=== PATIENT | male | born 1970 | race Caucasian/White ===

== ENCOUNTER 2016-10-14 18:58 | Emergency (ER) | payer OTHER ==
--- NOTE | 2016-10-14 19:42 | ED NURSING NOTES ---
Clinical Report - Nurses [facility] [address] [place] [address] 10/14/2016 18:58 Patient: LEOBARDO FERRER TRIAGE Triage time 1914. Acuity: LEVEL 3. Chief Complaint: FEVER and CHILLS and FATIGUE (night sweats). --19:17 Jakob Jeffery R.N. 19:13 10/14/16. BP: 113/70. HR: 80. RR: 18. O2 saturation: 96%. Temp: 98.7 F. Pain level now 03/28. --19:17 Jakob Jeffery R.N. Weight: 77.1 kg stated. Height/Length: 69 inches Per Patient. BMI: 25.1. --19:16 Jakob Jeffery R.N. Medications None. --19:15 Jakob Jeffery R.N. Allergies No Known Drug Allergy. --19:15 Jakob Jeffery R.N. History Arrived by private vehicle. Historian: patient. Accompanied by spouse. Onset. (about 4 days). He has had a headache. Treatment SPACE OPERATIONS: (nyquil). SOCIAL HX: Smoker- current status unknown (vape). FALL RISK ASSESSMENT: Fall risk assessment completed. No fall risk identified. NUTRITIONAL RISK ASSESSMENT: The nutritional risk assessment revealed no deficiencies. FUNCTIONAL ASSESSMENT: Functional assessment: no impairments noted. LEARNING NEEDS ASSESSMENT: The learning needs assessment revealed no barriers. SKIN INTEGRITY ASSESSMENT: Skin integrity risk assessment completed. No skin integrity risk identified. --19:17 Jakob Jeffery R.N. ADDITIONAL SURGERIES: Knee Surgery [2011]. --19:15 Jakob Jeffery R.N. Interventions ID band on patient. --19:17 Jakob Jeffery R.N. PHYSICAL ASSESSMENT Ambulatory to room. GENERAL / NEURO / PSYCH: Alert. Oriented X 4. Appears in no acute distress. HEENT: Pupils equal, round and reactive to light. Mucous membranes are pink. RESPIRATORY: Respirations not labored. Chest nontender. CVS: Capillary refill less than 2 seconds. Pulses within normal limits. GI / : Abdomen soft and nontender. SKIN: Skin intact. Skin is warm and dry. Normal skin turgor. --19:17 Jakob Jeffery R.N. NURSING PROGRESS NOTES Patient gowned. Head of bed elevated. Reassurance given. Patient identifiers checked. Call light placed in reach. Bed placed in lowest position. Brakes of bed on. --19:18 Jakob Jeffery R.N. DISPOSITION / DISCHARGE Departure time: 1999. Condition at departure: improved. No learning barriers present. Discharge instructions provided and reviewed with the patient and spouse. Reviewed warnings. Reviewed medication(s). Treatments reviewed. Patient and spouse verbalized understanding. Written instructions provided in Welsh. The patient was discharged by the physician. He was discharged home and accompanied by spouse. He left the Emergency Department ambulatory and via private vehicle. Spouse driving. FALL RISK ASSESSMENT: Fall risk assessment completed. No fall risk identified. --20:01 Jakob Jeffery R.N. 20:00 10/14/16. BP: 111/70. HR: 78. RR: 16. O2 saturation: 96%. Temp: 98.6 F. Pain level now 3/10. --20:01 Jakob Jeffery R.N. Locked/Released at 10/14/2016 20:01 by Jakob Jeffery R.N.
--- NOTE | 2016-10-14 19:42 | ED NURSING NOTES ---
Clinical Report - Nurses [facility] [address] [place] [address] 10/14/2016 18:58 Patient: LEOBARDO FERRER TRIAGE Triage time 1914. Acuity: LEVEL 3. Chief Complaint: FEVER and CHILLS and FATIGUE (night sweats). --19:17 Jakob Jeffery R.N. 19:13 10/14/16. BP: 113/70. HR: 80. RR: 18. O2 saturation: 96%. Temp: 98.7 F. Pain level now 03/28. --19:17 Jakob Jeffery R.N. Weight: 77.1 kg stated. Height/Length: 69 inches Per Patient. BMI: 25.1. --19:16 Jakob Jeffery R.N. Medications None. --19:15 Jakob Jeffery R.N. Allergies No Known Drug Allergy. --19:15 Jakob Jeffery R.N. History Arrived by private vehicle. Historian: patient. Accompanied by spouse. Onset. (about 4 days). He has had a headache. 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 SOCIAL HX: Smoker- current status unknown (vape). FALL RISK ASSESSMENT: Fall risk assessment completed. No fall risk identified. NUTRITIONAL RISK ASSESSMENT: The nutritional risk assessment revealed no deficiencies. FUNCTIONAL ASSESSMENT: Functional assessment: no impairments noted. LEARNING NEEDS ASSESSMENT: The learning needs assessment revealed no barriers. SKIN INTEGRITY ASSESSMENT: Skin integrity risk assessment completed. No skin integrity risk identified. --19:17 Jakob Jeffery R.N. ADDITIONAL SURGERIES: Knee Surgery [2011]. --19:15 Jakob Jeffery R.N. Interventions ID band on patient. --19:17 Jakob Jeffery R.N. PHYSICAL ASSESSMENT Ambulatory to room. GENERAL / NEURO / PSYCH: Alert. Oriented X 4. Appears in no acute distress. HEENT: Pupils equal, round and reactive to light. Mucous membranes are pink. RESPIRATORY: Respirations not labored. Chest nontender. CVS: Capillary refill less than 2 seconds. Pulses within normal limits. GI / : Abdomen soft and nontender. SKIN: Skin intact. Skin is warm and dry. Normal skin turgor. --19:17 Jakob Jeffery R.N. NURSING PROGRESS NOTES Patient gowned. Head of bed elevated. Reassurance given. Patient identifiers checked. Call light placed in reach. Bed placed in lowest position. Brakes of bed on. --19:18 Jakob Jeffery R.N. DISPOSITION / DISCHARGE Departure time: 1999. Condition at departure: improved. No learning barriers present. Discharge instructions provided and reviewed with the patient and spouse. Reviewed warnings. Reviewed medication(s). Treatments reviewed. Patient and spouse verbalized understanding. Written instructions provided in Bermudian. The patient was discharged by the physician. He was discharged home and accompanied by spouse. He left the Emergency Department ambulatory and via private vehicle. Spouse driving. FALL RISK ASSESSMENT: Fall risk assessment completed. No fall risk identified. --20:01 Jakob Jeffery R.N. 20:00 10/14/16. BP: 111/70. HR: 78. RR: 16. O2 saturation: 96%. Temp: 98.6 F. Pain level now 3/10. --20:01 Jakob Jeffery R.N. Locked/Released at 10/14/2016 20:01 by Jakob Jeffery R.N.
--- NOTE | 2016-10-14 19:42 | ED ORDER SUMMARY ---
..... Patient: LEOBARDO FERRER OrderSheet [facility] VisitID: [id number] [address] [place] [address] 46y, M Registration Date/Time: 10/14/2016 ORDER SHEET Weight: 77.1 kg (stated) Allergies: No Known Drug Allergy GENERAL ORDERS: Chest 2V Urgent (19:21 10/14/2016 Andrés Kowalski) (19:36 [facility]) MEDICATION ORDERS: IV FLUIDS: ORDER SHEET NOTES: [Electronically signed by Jakob Jeffery R.N. (20:01 10/14/2016)] [Electronically signed by Nellie Galdamez P.A.-C (20:16 10/14/2016)] [Electronically locked/signed by Jakob Jeffery R.N. (20:10/14/2016)]
--- NOTE | 2016-10-14 19:42 | ED ORDER SUMMARY ---
..... Patient: LEOBARDO FERRER OrderSheet [facility] VisitID: [id number] [address] [place] [address] 46y, M Registration Date/Time: 10/14/2016 ORDER SHEET Weight: 77.1 kg (stated) Allergies: No Known Drug Allergy GENERAL ORDERS: Chest 2V Urgent (19:21 10/14/2016 Andrés Kowalski) (19:36 [facility]) MEDICATION ORDERS: IV FLUIDS: ORDER SHEET NOTES: [Electronically signed by Jakob Jeffery R.N. (20:01 10/14/2016)] [Electronically signed by Nellie Galdamez P.A.-C (20:16 10/14/2016)] [Electronically locked/signed by Jakob Jeffery R.N. (20:10/14/2016)]
--- NOTE | 2016-10-14 19:42 | ED CLINICAL REPORT ---
Clinical Report - Physicians/Mid Levels [facility] [address] [place] [address] 10/14/2016 18:58 Patient: LEOBARDO FERRER Time Seen: 19:17 Oct 14 2016. Arrived- By private vehicle. Historian- patient. HISTORY OF PRESENT ILLNESS Chief Complaint: "FLU". This started 4 days and is still present. The illness is described as mild. The patient has had sputum production and a cough. Additional history - The patient has had contact with a sick individual. (Fevers cough over the last 4 days, recent sick contacts at work. Possible pneumonia. Reports no myalgias or arthralgias, however this had weakness.). REVIEW OF SYSTEMS No diarrhea. All systems otherwise negative, except as recorded above. PAST HISTORY Problems: Eye Pain. Additional Surgeries: Knee Surgery [2010]. Medications: None. Allergies: No Known Drug Allergy. SOCIAL HISTORY Smoker- current status unknown (vape). PHYSICAL EXAM Appearance: Alert. No acute distress. ENT: Pharynx normal. Uvula midline. CVS: Normal heart rate and rhythm. Heart sounds normal. Respiratory: No respiratory distress. Breath sounds normal. No retractions, splinting, rhonchi or wheezes. Abdomen: Soft. Neuro: Oriented X 3. LABS, X-RAYS, AND EKG Chest X-ray: Mediastinum normal. No fracture. (probably early signs of right infiltrate). PROGRESS AND PROCEDURES Course of Care: pt in the er is stable, early signs/ fevers/ cough of pneumonia/ vs bronchitis. Pt with good o2 sat, and no clear rhonchi, given vape, and exposure history will tx. NO hemoptysis. No signs of sepsis, normacardic. To f/u outpatient. 10/14/2016 20:00 BP: 111/70. HR: 78. RR: 16. O2 saturation: 96%. Temp: 98.6 F. Patient is stable. Symptoms better. Patient/family counseled. Differential Diagnosis: I considered viral bronchitis, laryngotracheobronchitis, viral pneumonia, bacterial bronchitis, bacterial tracheobronchitis, bacterial pneumonia, mycoplasmal bronchitis, mycoplasmal pneumonia, chlamydial bronchitis, bronchospasm, allergic bronchospasm, irritant bronchospasm, lung cancer and adverse drug reaction as a possible cause of cough in this patient. This is a partial list of diagnoses considered. Disposition: Discharged. Condition: good. CLINICAL IMPRESSION Acute bronchitis. INSTRUCTIONS Drink plenty of fluids. Prescription Medications: Robitussin A-C cough syrup take five (5) mL orally every 4 hours as needed for cough for 3 days. Dispense sixty (60) mL. No refill. Substitution is permissible. Zithromax 250 mg tablets: take 2 orally today, followed by 1 daily for the next 4 days. No refills. Substitution is permissible. OTC Medications: Motrin IB 200 mg (available over the counter): take 2 orally every 6 hours for 5 days, as needed for pain Follow-up: Follow up with your doctor in three days. (Electronically signed by Nellie Galdamez P.A.-C 10/14/2016 20:16)
--- NOTE | 2016-10-14 19:42 | ED CLINICAL REPORT ---
Clinical Report - Physicians/Mid Levels [facility] [address] [place] [address] 10/14/2016 18:58 Patient: LEOBARDO FERRER Time Seen: 19:17 Oct 14 2016. Arrived- By private vehicle. Historian- patient. HISTORY OF PRESENT ILLNESS Chief Complaint: "FLU". This started 4 days and is still present. The illness is described as mild. The patient has had sputum production and a cough. Additional history - The patient has had contact with a sick individual. (Fevers cough over the last 4 days, recent sick contacts at work. Possible pneumonia. Reports no myalgias or arthralgias, however this had weakness.). REVIEW OF SYSTEMS No diarrhea. All systems otherwise negative, except as recorded above. PAST HISTORY Problems: Eye Pain. Additional Surgeries: Knee Surgery [2010]. Medications: None. Allergies: No Known Drug Allergy. SOCIAL HISTORY Smoker- current status unknown (vape). PHYSICAL EXAM Appearance: Alert. No acute distress. ENT: Pharynx normal. Uvula midline. CVS: Normal heart rate and rhythm. Heart sounds normal. Respiratory: No respiratory distress. Breath sounds normal. No retractions, splinting, rhonchi or wheezes. Abdomen: Soft. Neuro: Oriented X 3. LABS, X-RAYS, AND EKG Chest X-ray: Mediastinum normal. No fracture. (probably early signs of right infiltrate). PROGRESS AND PROCEDURES Course of Care: pt in the er is stable, early signs/ fevers/ cough of pneumonia/ vs bronchitis. Pt with good o2 sat, and no clear rhonchi, given vape, and exposure history will tx. NO hemoptysis. No signs of sepsis, normacardic. To f/u outpatient. 10/14/2016 20:00 BP: 111/70. HR: 78. RR: 16. O2 saturation: 96%. Temp: 98.6 F. Patient is stable. Symptoms better. Patient/family counseled. Differential Diagnosis: I considered viral bronchitis, laryngotracheobronchitis, viral pneumonia, bacterial bronchitis, bacterial tracheobronchitis, bacterial pneumonia, mycoplasmal bronchitis, mycoplasmal pneumonia, chlamydial bronchitis, bronchospasm, allergic bronchospasm, irritant bronchospasm, lung cancer and adverse drug reaction as a possible cause of cough in this patient. This is a partial list of diagnoses considered. Disposition: Discharged. Condition: good. CLINICAL IMPRESSION Acute bronchitis. INSTRUCTIONS Drink plenty of fluids. Prescription Medications: Robitussin A-C cough syrup take five (5) mL orally every 4 hours as needed for cough for 3 days. Dispense sixty (60) mL. No refill. Substitution is permissible. Zithromax 250 mg tablets: take 2 orally today, followed by 1 daily for the next 4 days. No refills. Substitution is permissible. OTC Medications: Motrin IB 200 mg (available over the counter): take 2 orally every 6 hours for 5 days, as needed for pain Follow-up: Follow up with your doctor in three days. (Electronically signed by Nellie Galdamez P.A.-C 10/14/2016 20:16)
--- NOTE | 2016-10-14 20:16 | ED MAR SUMMARY ---
..... Medication Administration Record [facility] [address] [place], [place] [id number] Patient: LEOBARDO FERRER Visit ID: [id number] 46y, M Weight: 77.1 kg Height/Length: 69 in BMI: 25.1 ALLERGIES: No Known Drug Allergy
--- NOTE | 2016-10-14 20:16 | ED MAR SUMMARY ---
..... Medication Administration Record [facility] [address] [place], [place] [id number] Patient: LEOBARDO FERRER Visit ID: [id number] 46y, M Weight: 77.1 kg Height/Length: 69 in BMI: 25.1 ALLERGIES: No Known Drug Allergy
--- NOTE | 2016-10-14 20:16 | ED MED RECONCILIATION SUMMARY ---
Patient: LEOBARDO FERRER Medication Reconciliation Report [facility] VisitID: [id number] [place] [address] 46y, M Registration Date/Time: 10/14/2016 Weight: 77.1 kg Height/Length: 69 in. BMI: 25.1 ALLERGIES: No Known Drug Allergy The patient's Home Medications are listed below: NONE. The source(s) of the original Home Medication information: Not obtained. The following Medications were given to the patient in the Emergency Department: None. The following Medications were prescribed to the patient: Motrin IB 200 mg (available over the counter): take 2 orally every 6 hours for 5 days, as needed for pain -- Nellie Galdamez P.AEve Robitussin A-C cough syrup take five (5) mL orally every 4 hours as needed for cough for 3 days. Dispense sixty (60) mL. No refill. Substitution is permissible. -- Nellie Galdamez P.AEve Zithromax 250 mg tablets: take 2 orally today, followed by 1 daily for the next 4 days. No refills. Substitution is permissible. -- Nellie Galdamez P.AEve
--- NOTE | 2016-10-14 20:16 | ED MED RECONCILIATION SUMMARY ---
Patient: LEOBARDO FERRER Medication Reconciliation Report [facility] VisitID: [id number] [place] [address] 46y, M Registration Date/Time: 10/14/2016 Weight: 77.1 kg Height/Length: 69 in. BMI: 25.1 ALLERGIES: No Known Drug Allergy The patient's Home Medications are listed below: NONE. The source(s) of the original Home Medication information: Not obtained. The following Medications were given to the patient in the Emergency Department: None. The following Medications were prescribed to the patient: Motrin IB 200 mg (available over the counter): take 2 orally every 6 hours for 5 days, as needed for pain -- Nellie Galdamez P.AEve Robitussin A-C cough syrup take five (5) mL orally every 4 hours as needed for cough for 3 days. Dispense sixty (60) mL. No refill. Substitution is permissible. -- Nellie Galdamez P.AEve Zithromax 250 mg tablets: take 2 orally today, followed by 1 daily for the next 4 days. No refills. Substitution is permissible. -- Nellie Galdamez P.AEve
--- NOTE | 2016-10-14 20:16 | ED DISCHARGE INSTRUCTIONS ---
Patient: LEOBARDO FERRER General Instructions [facility] VisitID: [id number] [place] [address] 46y, M Registration Date/Time: 10/14/2016 Acute bronchitis. INSTRUCTIONS Drink plenty of fluids. Prescription Medications: Robitussin A-C cough syrup take five (5) mL orally every 4 hours as needed for cough for 3 days. Dispense sixty (60) mL. No refill. Substitution is permissible. Zithromax 250 mg tablets: take 2 orally today, followed by 1 daily for the next 4 days. No refills. Substitution is permissible. OTC Medications: Motrin IB 200 mg (available over the counter): take 2 orally every 6 hours for 5 days, as needed for pain Follow-up: Follow up with your doctor in three days. ADDITIONAL INFORMATION Bronchitis (Adult: Abx Tx) BRONCHITIS is an infection of the air passages (bronchial tubes). It often occurs during the common cold. Symptoms include cough with mucus (phlegm) and low-grade fever. Bronchitis usually lasts 7-14 days. Mild cases can be treated with simple home remedies. More severe infection is treated with an antibiotic. Home Care: If symptoms are severe, rest at home for the first 2-3 days. When you resume activity, don't let yourself get too tired. Do not smoke. Avoid being exposed to the smoke of others. You may use acetaminophen (Tylenol) or ibuprofen (Motrin, Advil) to control fever or pain, unless another medicine was prescribed for this. [NOTE: If you have chronic liver or kidney disease or ever had a stomach ulcer or GI bleeding, talk with your doctor before using these medicines.] Your appetite may be poor, so a light diet is fine. Avoid dehydration by drinking 6-8 glasses of fluids per day (water, soft, drinks, juices, tea, soup, etc.). Extra fluids will help loosen secretions in the lungs. Xwfg-qhv-huplyji cough medicines that containdextromethorphan(such as Robitussin DM) and decongestants (Actifed or Sudafed) may help relieve cough and congestion. [NOTE: Do not use decongestants if you have high blood pressure.] Finish all antibiotic medicine, even if you are feeling better after only a few days. Follow Up with your doctor or as directed if you dont start to feel better after three days. [NOTE: If you are age 65 or older, or if you have chronic asthma or COPD, we recommend a PNEUMOCOCCAL VACCINATION every five years and a yearly INFLUENZAVACCINATION (FLU-SHOT) every . Ask your doctor about this. If you had an X-ray, a radiologist will review it. You will be notified of any new findings that may affect your care.] Get Prompt Medical Attention if any of the following occur: Fever over 100.4F (38.0C) for more than three days Trouble breathing, wheezing or pain with breathing Coughing up blood or increased amounts of colored sputum Weakness, drowsiness, headache, facial pain, ear pain or a stiff neck Ibuprofen Oral tablet What is this medicine? IBUPROFEN (eye BYOO proe fen) is a non-steroidal anti-inflammatory drug (NSAID). It is used for dental pain, fever, headaches or migraines, osteoarthritis, rheumatoid arthritis, or painful monthly periods. It can also relieve minor aches and pains caused by a cold, flu, or sore throat. How should I use this medicine? Take this medicine by mouth with a glass of water. Follow the directions on the prescription label. Take this medicine with food if your stomach gets upset. Try to not lie down for at least 10 minutes after you take the medicine. Take your medicine at regular intervals. Do not take your medicine more often than directed. A special MedGuide will be given to you by the pharmacist with each prescription and refill. Be sure to read this information carefully each time. Talk to your welding foreman regarding the use of this medicine in children. Special care may be needed. What side effects may I notice from receiving this medicine? Side effects that you should report to your doctor or health laboratory animal caretaker as soon as possible: allergic reactions like skin rash, itching or hives, swelling of the face, lips, or tongue black or bloody stools, blood in the urine or in vomit breathing problems changes in vision chest pain general ill feeling or flu-like symptoms nausea or vomiting redness, blistering, peeling or loosening of the skin, including inside the mouth slurred speech or weakness on one side of the body stomach pain unexplained weight gain or swelling unusually weak or tired yellowing of eyes or skin Side effects that usually do not require medical attention (report to your doctor or health laboratory animal caretaker if they continue or are bothersome): constipation or diarrhea dizziness gas or heartburn stomach upset What may interact with this medicine? Do not take this medicine with any of the following medications: cidofovir ketorolac methotrexate pemetrexed This medicine may also interact with the following medications: alcohol aspirin diuretics lithium other drugs for inflammation like prednisone warfarin What if I miss a dose? If you miss a dose, take it as soon as you can. If it is almost time for your next dose, take only that dose. Do not take double or extra doses. Where should I keep my medicine? Keep out of the reach of children. Store at room temperature between 15 and 30 degrees C (59 and 86 degrees F). Keep container tightly closed. Throw away any unused medicine after the expiration date. What should I tell my health care provider before I take this medicine? They need to know if you have any of these conditions: asthma cigarette smoker drink more than 3 alcohol containing drinks a day heart disease or circulation problems such as heart failure or leg edema (fluid retention) high blood pressure kidney disease liver disease stomach bleeding or ulcers an unusual or allergic reaction to ibuprofen, aspirin, other NSAIDS, other medicines, foods, dyes, or preservatives or trying to get breast-feeding What should I watch for while using this medicine? Tell your doctor or healthcare professional if your symptoms do not start to get better or if they get worse. This medicine does not prevent heart attack or stroke. In fact, this medicine may increase the chance of a heart attack or stroke. The chance may increase with longer use of this medicine and in people who have heart disease. If you take aspirin to prevent heart attack or stroke, talk with your doctor or health laboratory animal caretaker. Do not take other medicines that contain aspirin, ibuprofen, or naproxen with this medicine. Side effects such as stomach upset, nausea, or ulcers may be more likely to occur. Many medicines available without a prescription should not be taken with this medicine. This medicine can cause ulcers and bleeding in the stomach and intestines at any time during treatment. Ulcers and bleeding can happen without warning symptoms and can cause . To reduce your risk, do not smoke cigarettes or drink alcohol while you are taking this medicine. You may get drowsy or dizzy. Do not drive, use machinery, or do anything that needs mental alertness until you know how this medicine affects you. Do not stand or sit up quickly, especially if you are an older patient. This reduces the risk of dizzy or fainting spells. This medicine can cause you to bleed more easily. Try to avoid damage to your teeth and gums when you brush or floss your teeth. You have been given the following additional information: Bronchitis, Antiobiotic Treatment (Adult) Ibuprofen Oral tablet (Electronically signed by Nellie Galdamez P.A.-C 10/14/2016 20:16)
--- NOTE | 2016-10-14 21:25 | DIAGNOSTIC IMAGING REPORT ---
PROCEDURE: XR CHEST 2 VIEW INDICATION: FEVER TECHNIQUE: PA and lateral views. COMPARISON: None. FINDINGS: There mild increased parenchymal changes in the right upper lobe anterior segment) with mild right hilar adenopathy. Left lung is clear. Heart and mediastinum are normal. Thorax is normal. IMPRESSION: 1. Increased parenchymal changes in the right upper lobe with right hilar adenopathy. Findings are most compatible with pneumonia (e.g., bacterial, Mycoplasma). Atypical pneumonitis (e.g., fungal, primary tuberculosis) are less likely, although could have this appearance. 2. Findings discussed with LAURENCE Corral.
== END 2016-10-14 20:00 | disposition home or self-care (01) ==
LOC: ED SRH 18:58
DX: J20.9 Acute bronchitis, unspecified (principal)

== ENCOUNTER 2016-11-08 18:02 | Emergency (ER) | payer OTHER ==
--- NOTE | 2016-11-08 19:48 | DIAGNOSTIC IMAGING REPORT ---
PROCEDURE: CT ABDOMEN/PELVIS W/O CONTRAST INDICATION: RIGHT FLANK PAIN, HX STONES, HEMATURIA TECHNIQUE: Axial CT images were obtained through the abdomen and pelvis without IV contrast. Coronal and sagittal reformations were created. COMPARISON: None. FINDINGS: Mild right hydronephrosis and hydroureter. At the right ureterovesicular junction, there is a 3 mm calculus. No discrete intrarenal calculi of either side. Clear lung bases. Normal size heart. No hiatal hernia. The unenhanced appearance of the liver, gallbladder, adrenal glands, pancreas and spleen is normal. The abdominal aorta is normal in its course and caliber without atherosclerosis. There are no suspicious calcifications, retroperitoneal adenopathy or masses. The stomach, upper bowel loops, and mesentery appears normal. Intact anterior abdominal wall. No free fluid, or inflammation. The unenhanced appearance of the prostate gland, seminal vesicles, decompressed urinary bladder, pelvic vessels, and pelvic bowel loops is normal. Normal appendix. No suspicious free fluid, or mass. Severe disc endplate degeneration L4-5 and L5-S1. Mild degenerative changes in the right hip joint. IMPRESSION: 1. 3 mm right ureter vesicular junction calculus causing mild hydroureteronephrosis. 2. Findings called to the emergency room. All CT scans at this facility use dose modulation, iterative reconstruction, and/or weight-based dosing when appropriate to reduce radiation dose to as low as reasonably achievable.
--- NOTE | 2016-11-08 20:43 | ED ORDER SUMMARY ---
..... Patient: LEOBARDO FERRER OrderSheet [facility] VisitID: [id number] [address] [place] [address] 46y, M Registration Date/Time: 11/08/2016 ORDER SHEET Weight: 79.3 kg (stated) Allergies: No Known Drug Allergy GENERAL ORDERS: UA-Culture if indicated Urgent (18:31 11/08/2016 DDean R.N. per protocol) (Ack 18:37 LNations ER Tech1) (18:41 DDean R.N.) CBC w Diff Urgent (18:41 11/08/2016 Rey Shane) (Ack 18:43 LNations ER Tech1) (19:26 DDean R.N.) CMP Urgent (18:41 11/08/2016 Rey Shane) (Ack 18:43 LNations ER Tech1) (19:26 DDean R.N.) Lipase Urgent (18:41 11/08/2016 Rey Shane) (Ack 18:43 LNations ER Tech1) (19:26 DDean R.N.) CT Abd/Pel wo Cont Urgent (18:51 11/08/2016 Rey Shane) (Ack 18:53 LNations ER Tech1) (19:03 DDean R.N.) MEDICATION ORDERS: IV FLUIDS: IV NS : initial bolus 1000 mL (1000 mL/hr), then none - for X1 (NOW) (18:41 11/08/2016 Rey Shane) (Ack 18:54 DDean R.N.) (19:29 DDean R.N.) Toradol IV 30 mg (NOW) (18:52 11/08/2016 Rey Shane) (Ack 18:56 DDean R.N.) (19:27 DDean R.N.) Morphine IV 4 mg (HIGH ALERT MEDICATION, NOW) (18:52 11/08/2016 Rey Shane) (Ack 18:56 DDean R.N.) (19:28 DDean R.N.) ORDER SHEET NOTES: [Electronically signed by Bert Rosales R.N. (02:35 11/09/2016)] [Electronically signed by Marvel Dejesus Dr. (03:46 11/16/2016)] [Electronically locked/signed by Bert Rosales R.N. (02:35 11/09/2016)]
--- NOTE | 2016-11-08 20:43 | ED NURSING NOTES ---
Clinical Report - Nurses [facility] [place] [address] 11/08/2016 18:02 Patient: LEOBARDO FERRER TRIAGE Triage time 18:18. Acuity: LEVEL 3. Chief Complaint: BACK PAIN and (frequency, urgency, dysuria, pain in testicles). Alert. ABRAHAN COMA SCORE: [place] Coma Scale: 15- eyes open spontaneously (4); best verbal response- oriented x 4 (5); best motor response- obeys commands (6). --18:25 Di Powers R.N. 18:18 11/08/16. BP: 113/85. HR: 65. RR: 18. O2 saturation: 97%. Temp: 98.2 F (oral). Pain level now: 8/10. --18:25 Di Powers R.N. Weight: 79.3 kg stated. Height/Length: 69 inches Per Patient. BMI: 25.8. --18:22 Di Powers R.N. Medications antibiotic for skin. --18:21 Di Powers R.N. Medication/allergy information source: the patient. --18:25 Di Powers R.N. Allergies No Known Drug Allergy. --18:22 Di Powers R.N. History Arrived by private vehicle. Historian: patient. Accompanied by family. Primary physician (Veronica). Onset. (last Tuesday). ( constant). Relates the location as in the right flank area. Notes pain level as 7/10 on arrival. It is described as radiating to the right lower quadrant of the abdomen. SOCIAL HX: Smoker- current status unknown (no). No alcohol use or drug use. FALL RISK ASSESSMENT: Fall risk assessment completed. No fall risk identified. FUNCTIONAL ASSESSMENT: Functional assessment: no impairments noted. LEARNING NEEDS ASSESSMENT: The learning needs assessment revealed no barriers. --18:25 Di Powers R.N. PROBLEMS: UTI - Urinary Tract Infection. Nephrolithiasis. Bronchitis. Eye Pain. --18:22 Di Powers R.N. ADDITIONAL SURGERIES: Knee Surgery [2011]. --18:22 Di Powers R.N. Assessment GENERAL / NEURO / PSYCH: Alert. Oriented X 4. Appears in no acute distress. Patient appears calm and cooperative. RESPIRATORY: Respirations not labored. SKIN: Skin is warm and dry. --18:25 Di Powers R.N. Interventions ID band on patient. To treatment room. --18:25 Di Powers R.N. PHYSICAL ASSESSMENT 18:25. Ambulatory to room. Patient gowned. GENERAL / NEURO / PSYCH: Alert. Oriented X 4. Appears in pain. RESPIRATORY: Respirations not labored. CVS: Capillary refill less than 2 seconds. GI / : Abdomen soft. ( pt states he has pain in urination "feels more like a kidney infection than a kidney stone"). --18:30 Juilanne Junior R.N. NURSING PROGRESS NOTES 18:18 attempting to collect urine. --18:18 Di Powers R.N. 18:18. Patient gowned. Head of bed elevated. Reassurance given. Patient identifiers checked. Call light placed in reach. Side rails up. Bed placed in lowest position. Care transferred and report received (placed in room bytriage nurse). --18:28 Julianne Junior R.N. 18:25. Patient ID band checked for patient name and birthdate: patient confirmed. Clean catch urine collected with return of yellow-colored clear urine; sample sent to lab for urinalysis and culture. Specimen labeled in the presence of the patient. --18:29 Julianne Junior R.N. 19:14 11/08/2016 Started bag #1 1000 mL IV Fluids IV NS (Saline); at 1000 mL/hr over 1 hour(s) via site #1 via IV pump. --19:29 Julianne Junior R.N. 19:15 11/08/2016 Site #1 started via IV in the right forearm with an 20g angiocath, with aseptic technique and good blood return; one attempt. Blood drawn: rainbow set. Labeled in the presence of the patient and sent to the lab. Saline lock flushed with 10 mL saline. --19:27 Julianne Junior R.N. 19:17 11/08/2016 Toradol IVP 30 mg given over 1 minute(s) via site #1. IV patency established. IV site checked: no pain, redness, or swelling. IV flushed thoroughly pre- and post-medication administration. IVP given by RN. --19:27 Julianne Junior R.N. 19:18 11/08/2016 Morphine IVP 4 mg given over 1 minute(s) via site #1. Sedative warning given to the patient. IV patency established. IV site checked: no pain, redness, or swelling. IV flushed thoroughly pre- and post-medication administration. IVP given by RN. --19:28 Julianne Junior R.N. 19:29 11/08/2016 Morphine IVP Response: pain is gone now. Symptoms have improved the patient feels better. ED physician notified. --19:29 Julianne Junior R.N. 20:35 11/08/16. --20:35 Julianne Junior R.N. 20:34 11/08/16. BP: 104/74. HR: 58. RR: 18. O2 saturation: 97%. Temp: deferred. Pain level now: 0/10. --20:35 Julianne Junior R.N. 20:48. The patient is calm and resting quietly. Overall patient status is improved- he states feels better. GENERAL / NEURO / PSYCH: Alert. Oriented X 4. SKIN: Skin is warm and dry. Skin color within normal limits. --20:53 Bert Rosales R.N. DISPOSITION / DISCHARGE 20:45 11/08/2016 Site #1 removed upon discharge. Catheter intact. Bandage applied. --20:53 Bert Rosales R.N. Departure time: 20:51. Condition at departure: stable. No learning barriers present. Discharge instructions provided and reviewed with the patient. Reviewed medication(s) side effects, precautions, dosing and course information. Prescription(s) given to the patient. Patient verbalized understanding. Written instructions provided in Hebrew. The patient was discharged home and accompanied by tax examiner. He left the Emergency Department ambulatory and via private vehicle. R[employer]D Lab Technician driving. FALL RISK ASSESSMENT: Fall risk assessment completed. No fall risk identified. --20:53 Bert Rosales R.N. 20:46 11/08/16. BP: 104/71. HR: 56. RR: 14. O2 saturation: 99%. Pain level now: 0/10. --20:53 Bert Rosales R.N. Locked/Released at 11/09/2016 2:35 by Bert Rosales R.N.
--- NOTE | 2016-11-08 20:43 | ED ORDER SUMMARY ---
..... Patient: LEOBARDO FERRER OrderSheet [facility] VisitID: [id number] [address] [place] [address] 46y, M Registration Date/Time: 11/08/2016 ORDER SHEET Weight: 79.3 kg (stated) Allergies: No Known Drug Allergy GENERAL ORDERS: UA-Culture if indicated Urgent (18:31 11/08/2016 DDean R.N. per protocol) (Ack 18:37 LNations ER Tech1) (18:41 DDean R.N.) CBC w Diff Urgent (18:41 11/08/2016 Rey Shane) (Ack 18:43 LNations ER Tech1) (19:26 DDean R.N.) CMP Urgent (18:41 11/08/2016 Rey Shane) (Ack 18:43 LNations ER Tech1) (19:26 DDean R.N.) Lipase Urgent (18:41 11/08/2016 Rey Shane) (Ack 18:43 LNations ER Tech1) (19:26 DDean R.N.) CT Abd/Pel wo Cont Urgent (18:51 11/08/2016 Rey Shane) (Ack 18:53 LNations ER Tech1) (19:03 DDean R.N.) MEDICATION ORDERS: IV FLUIDS: IV NS : initial bolus 1000 mL (1000 mL/hr), then none - for X1 (NOW) (18:41 11/08/2016 Rey Shane) (Ack 18:54 DDean R.N.) (19:29 DDean R.N.) Toradol IV 30 mg (NOW) (18:52 11/08/2016 Rey Shane) (Ack 18:56 DDean R.N.) (19:27 DDean R.N.) Morphine IV 4 mg (HIGH ALERT MEDICATION, NOW) (18:52 11/08/2016 Rey Shane) (Ack 18:56 DDean R.N.) (19:28 DDean R.N.) ORDER SHEET NOTES: [Electronically signed by Bert Rosales R.N. (02:35 11/09/2016)] [Electronically signed by Marvel Dejesus Dr. (03:46 11/16/2016)] [Electronically locked/signed by Bert Rosales R.N. (02:35 11/09/2016)]
--- NOTE | 2016-11-08 20:43 | ED NURSING NOTES ---
Clinical Report - Nurses [facility] [place] [address] 11/08/2016 18:02 Patient: LEOBARDO FERRER TRIAGE Triage time 18:18. Acuity: LEVEL 3. Chief Complaint: BACK PAIN and (frequency, urgency, dysuria, pain in testicles). Alert. ABARHAN COMA SCORE: [place] Coma Scale: 15- eyes open spontaneously (4); best verbal response- oriented x 4 (5); best motor response- obeys commands (6). --18:25 Di Powers R.N. 18:18 11/08/16. BP: 113/85. HR: 65. RR: 18. O2 saturation: 97%. Temp: 98.2 F (oral). Pain level now: 8/10. --18:25 Di Powers R.N. Weight: 79.3 kg stated. Height/Length: 69 inches Per Patient. BMI: 25.8. --18:22 Di Powers R.N. Medications antibiotic for skin. --18:21 Di Powers R.N. Medication/allergy information source: the patient. --18:25 Di Powers R.N. Allergies No Known Drug Allergy. --18:22 Di Powers R.N. History Arrived by private vehicle. Historian: patient. Accompanied by family. Primary physician (Veronica). Onset. (last Tuesday). ( constant). Relates the location as in the right flank area. Notes pain level as 7/10 on arrival. It is described as radiating to the right lower quadrant of the abdomen. SOCIAL HX: Smoker- current status unknown (no). No alcohol use or drug use. FALL RISK ASSESSMENT: Fall risk assessment completed. No fall risk identified. FUNCTIONAL ASSESSMENT: Functional assessment: no impairments noted. LEARNING NEEDS ASSESSMENT: The learning needs assessment revealed no barriers. --18:25 Di Powers R.N. PROBLEMS: UTI - Urinary Tract Infection. Nephrolithiasis. Bronchitis. Eye Pain. --18:22 Di Powers R.N. ADDITIONAL SURGERIES: Knee Surgery [2011]. --18:22 Di Powers R.N. Assessment GENERAL / NEURO / PSYCH: Alert. Oriented X 4. Appears in no acute distress. Patient appears calm and cooperative. RESPIRATORY: Respirations not labored. SKIN: Skin is warm and dry. --18:25 Di Powers R.N. Interventions ID band on patient. To treatment room. --18:25 Di Powers R.N. PHYSICAL ASSESSMENT 18:25. Ambulatory to room. Patient gowned. GENERAL / NEURO / PSYCH: Alert. Oriented X 4. Appears in pain. RESPIRATORY: Respirations not labored. CVS: Capillary refill less than 2 seconds. GI / : Abdomen soft. ( pt states he has pain in urination "feels more like a kidney infection than a kidney stone"). --18:30 Julianne Junior R.N. NURSING PROGRESS NOTES 18:18 attempting to collect urine. --18:18 Di Powers R.N. 18:18. Patient gowned. Head of bed elevated. Reassurance given. Patient identifiers checked. Call light placed in reach. Side rails up. Bed placed in lowest position. Care transferred and report received (placed in room bytriage nurse). --18:28 Julianne Junior R.N. 18:25. Patient ID band checked for patient name and birthdate: patient confirmed. Clean catch urine collected with return of yellow-colored clear urine; sample sent to lab for urinalysis and culture. Specimen labeled in the presence of the patient. --18:29 Julianne Junior R.N. 19:14 11/08/2016 Started bag #1 1000 mL IV Fluids IV NS (Saline); at 1000 mL/hr over 1 hour(s) via site #1 via IV pump. --19:29 Julianne Junior R.N. 19:15 11/08/2016 Site #1 started via IV in the right forearm with an 20g angiocath, with aseptic technique and good blood return; one attempt. Blood drawn: rainbow set. Labeled in the presence of the patient and sent to the lab. Saline lock flushed with 10 mL saline. --19:27 Julianne Junior R.N. 19:17 11/08/2016 Toradol IVP 30 mg given over 1 minute(s) via site #1. IV patency established. IV site checked: no pain, redness, or swelling. IV flushed thoroughly pre- and post-medication administration. IVP given by RN. --19:27 Julianne Junior R.N. 19:18 11/08/2016 Morphine IVP 4 mg given over 1 minute(s) via site #1. Sedative warning given to the patient. IV patency established. IV site checked: no pain, redness, or swelling. IV flushed thoroughly pre- and post-medication administration. IVP given by RN. --19:28 Julianne Junior R.N. 19:29 11/08/2016 Morphine IVP Response: pain is gone now. Symptoms have improved the patient feels better. ED physician notified. --19:29 Julianne Junior R.N. 20:35 11/08/16. --20:35 Julianne Junior R.N. 20:34 11/08/16. BP: 104/74. HR: 58. RR: 18. O2 saturation: 97%. Temp: deferred. Pain level now: 0/10. --20:35 Julianne Junior R.N. 20:48. The patient is calm and resting quietly. Overall patient status is improved- he states feels better. GENERAL / NEURO / PSYCH: Alert. Oriented X 4. SKIN: Skin is warm and dry. Skin color within normal limits. --20:53 Bert Rosales R.N. DISPOSITION / DISCHARGE 20:45 11/08/2016 Site #1 removed upon discharge. Catheter intact. Bandage applied. --20:53 Bert Rosales R.N. Departure time: 20:51. Condition at departure: stable. No learning barriers present. Discharge instructions provided and reviewed with the patient. Reviewed medication(s) side effects, precautions, dosing and course information. Prescription(s) given to the patient. Patient verbalized understanding. Written instructions provided in [place]ian. The patient was discharged home and accompanied by journeyman press operator. He left the Emergency Department ambulatory and via private vehicle. Operations Mgr driving. FALL RISK ASSESSMENT: Fall risk assessment completed. No fall risk identified. --20:53 Bert Rosales R.N. 20:46 11/08/16. BP: 104/71. HR: 56. RR: 14. O2 saturation: 99%. Pain level now: 0/10. --20:53 Bert Rosales R.N. Locked/Released at 11/09/2016 2:35 by Bert Rosales R.N.
--- NOTE | 2016-11-08 20:43 | ED CLINICAL REPORT ---
Clinical Report - Physicians/Mid Levels [facility] [address] [place] [address] 11/08/2016 18:02 Patient: LEOBARDO FERRER Arrived- By private vehicle. Historian- patient. HISTORY OF PRESENT ILLNESS Chief Complaint: ABDOMINAL PAIN. This started past several days and is still present but is improving. It was abrupt in onset and has been intermittent but is not gone now. At its maximum, severity described as severe. When seen in the E.D., severity described as severe. Modifying factors. Not worsened by anything. Not relieved by anything. It is described as sharp. No radiation. It is described as located in the right lower quadrant. The patient has had nausea and vomiting. No additional abdominal pain. (reports hematuria). Similar symptoms previously: None. Recent medical care: Not recently seen/assessed. REVIEW OF SYSTEMS No fever or chest pain. All systems otherwise negative, except as recorded above. PAST HISTORY See nurses notes. Medications: antibiotic for skin. Allergies: No Known Drug Allergy. SOCIAL HISTORY Never smoker. No alcohol use or drug use. No recent travel. Is a local resident. ADDITIONAL NOTES The nursing notes have been reviewed. PHYSICAL EXAM Vital Signs: 11/08/2016 18:18 BP: 113/85. HR: 65. RR: 18. O2 saturation: 97%. Temp: 98.2 F. Pain level now: 8/10. Blood pressure normal. Oxygen saturation normal. Appearance: Alert. Oriented X3. No acute distress. CVS: Normal heart rate and rhythm. Heart sounds normal. Pulses normal. Respiratory: No respiratory distress. Breath sounds normal. Chest nontender. Abdomen: Soft and nontender. Bowel sounds normal. (egative Walter's. No tenderness at McBurney's. No rebound or guarding.). : (Declined by patient). Skin: Skin warm and dry. Normal skin color. No rash. Normal skin turgor. Extremities: Extremities exhibit normal ROM. No lower extremity edema. Neuro: No motor deficit. No sensory deficit. LABS, X-RAYS, AND EKG Abdominal CT: PROCEDURE: CT ABDOMEN/PELVIS W/O CONTRAST INDICATION: RIGHT FLANK PAIN, HX STONES, HEMATURIA TECHNIQUE: Axial CT images were obtained through the abdomen and pelvis without IV contrast. Coronal and sagittal reformations were created. COMPARISON: None. FINDINGS: Mild right hydronephrosis and hydroureter. At the right ureterovesicular junction, there is a 3 mm calculus. No discrete intrarenal calculi of either side. Clear lung bases. Normal size heart. No hiatal hernia. The unenhanced appearance of the liver, gallbladder, adrenal glands, pancreas and spleen is normal. The abdominal aorta is normal in its course and caliber without atherosclerosis. There are no suspicious calcifications, retroperitoneal adenopathy or masses. The stomach, upper bowel loops, and mesentery appears normal. Intact anterior abdominal wall. No free fluid, or inflammation. The unenhanced appearance of the prostate gland, seminal vesicles, decompressed urinary bladder, pelvic vessels, and pelvic bowel loops is normal. Normal appendix. No suspicious free fluid, or mass. Severe disc endplate degeneration L4-5 and L5-S1. Mild degenerative changes in the right hip joint. IMPRESSION: 1. 3 mm right ureter vesicular junction calculus causing mild hydroureteronephrosis. Study type: abdomen and pelvis. Abdominal CT performed without contrast. The study was independently viewed by me and interpreted by the radiologist. The study was discussed with the radiologist (via pacs and phone). Laboratory Tests: UA-Culture if indicated: (DARRYL: 11/08/2016 18:15) ( MsgRcvd 11/08/2016 19:21) Final results Test Result Flag Units (Reference) URINE COLOR YELLOW URINE APPEARANCE CLEAR URINE GLUCOSE NEGATIVE (NEGATIVE) URINE BILIRUBIN NEGATIVE (NEGATIVE) URINE KETONE TRACE (NEGATIVE) URINE SPECIFIC GRAVITY 1.025 (1.010-1.030) URINE PH 6.0 (5.0-8.0) URINE PROTEIN NEGATIVE (NEGATIVE) URINE UROBILINOGEN 0.2 EU/dL (0.2-1.0) URINE NITRITE NEGATIVE (NEGATIVE) URINE BLOOD 2+ (NEGATIVE) URINE LEUK ESTERASE NEGATIVE (NEGATIVE) URINE RBC 5-10 rbc/hpf (0-1) URINE WBC 0-1 wbc/hpf (0-1) URINE EPITHELIAL CELLS RARE EPI/hpf (0-5) URINE BACTERIA NONE SEEN (NONE SEEN) URINE COMMENT CULT NOT INDICATED URINE CULTURES ARE SET-UP BASED ON THE FOLLOWING CRITERIA:POSITIVE NITRITEPOSITIVE LEUKOCYTE ESTERASEGREATER THAN 10 WHITE BLOOD CELLSMODERATE (2+) OR GREATER BACTERIA CBC w Diff: (DARRYL: 11/08/2016 19:10) ( MsgRcvd 11/08/2016 19:31) Final results Test Result Flag Units (Reference) WHITE BLOOD COUNT 9.2 K/uL (4.5-11.5) RED BLOOD COUNT 5.34 M/uL (4.50-5.90) HEMOGLOBIN 15.4 gm/dL (13.5-17.5) HEMATOCRIT 46.4 % (41.0-53.0) MEAN CELL VOLUME 87 fL (80-100) MEAN CORPUSCULAR HGB 29 pg (26-34) MEAN CORPUSCULAR HGB CONC 33 g/dL (31-37) RED CELL DISTRIBUTION WIDTH 13.6 % (11.6-14.8) PLATELET COUNT 288 K/uL (150-400) NEUTROPHIL % 55.6 % (50-75) LYMPH % 27.1 % (25-40) MONO % 8.5 % (3-14) EOSINOPHIL % 8.3 H % (0-4) BASOPHIL % 0.5 % (0-2) CMP: (DARRYL: 11/08/2016 19:10) ( MsgRcvd 11/08/2016 19:45) Final results Test Result Flag Units (Reference) GLUCOSE 90 mg/dL (70-110) BUN 23 H mg/dL (7-18) CREATININE 1.3 mg/dL (0.6-1.3) Estimated GFR >60 mL/min Estimated GFR- >60 mL/min Note: Persistent reduction over 3 months in eGFR<60 mL/min/1.73 m2 defines CKD. Patients with eGFR values>=60 mL/min/1.73 m2 may also have CKD if evidence ofpersistent proteinuria. Additional information may be foundat [email or web address].org. SODIUM 140 mmol/L (136-145) POTASSIUM 4.1 mmol/L (3.5-5.1) CHLORIDE 105 mmol/L (98-107) CARBON DIOXIDE 24 mmol/L (21-32) CALCIUM 9.3 mg/dL (8.5-10.1) TOTAL PROTEIN 7.1 g/dL (6.4-8.2) ALBUMIN 3.7 g/dL (3.3-5.0) BILIRUBIN, TOTAL 0.6 mg/dL (0.0-1.0) ALKALINE PHOSPHATASE 74 U/L (46-116) AST (SGOT) 32 U/L (15-37) ALT (SGPT) 53 U/L (12-78) LIPASE 143 U/L (73-393) . PROGRESS AND PROCEDURES Course of Care: he patient is a pleasant 46-year-old male with past medical history significant for kidney stones presenting for a vaginal right lower quadrant but all pain. Patient states that he has had pain similar to this with pattern or kidney stones. The patient states that he's been trying to deal with the pain for the past several days however has not improved. Patient also reports hematuria. Likely urinary tract infection or kidney stone. Patient will evaluated with a CT scan of the abdomen and pelvis without contrast for evaluation of stones and possible competition from stones. We'll also evaluate patient's kidney function as well as electrolytes which could have been altered secondary to patient's likely kidney stone. Patient is agreeable to treatment plan. No prior studies for patient's CT scan and noted on our imaging files. Patient reported significant improvement with his symptoms while here in the emergency department after medications at been given. CT scan and laboratory studies were significant for a kidney stone. Patient had a 3 mm stone in the right UVJ which is consistent with the location of pain reported. No evidence of acute appendicitis. Do not feel patient requires further emergency department workup/evaluation or admission to the hospital at this time. Patient continues to be nontoxic and in no acute distress. Discussed with patient workup, diagnosis, home care, follow-up, and return precautions. All questions have been answered. The patient expressed understanding of these instructions and was agreeable to them. Disposition: Discharged. Condition: good. CLINICAL IMPRESSION 11/08/2016 20:34 BP: 104/74. HR: 58. RR: 18. O2 saturation: 97%. Pain level now: 0/10. Blood pressure normal. Oxygen saturation normal. Right renal colic in the right ureter with hydronephrosis and hematuria (acute). INSTRUCTIONS Warnings: GENERAL WARNINGS: Return or contact your physician immediately if your condition worsens or changes unexpectedly, if not improving as expected, or if other problems arise. SPECIFICALLY, return if you develop pain, fever, vomiting, the inability to keep fluids down, blood in vomitus, blood in diarrhea, fainting or lightheadedness. Your Current Medications: CONTINUE TAKING THE FOLLOWING MEDICATIONS: antibiotic for skin*. Prescription Medications: Zofran (orally disintegrating tablets) 4 mg: take 1 orally every 8 hours as needed for nausea and vomiting. Dispense ten (10). No refill. Substitution is permissible. Motrin 600 mg tablets: take 1 tablet orally every 6 hours as needed for pain, stiffness or swelling. Dispense thirty (30). No refill. Substitution is permissible. Percocet 5 mg/325 mg: take 1 tablet orally every 6 hours as needed for pain. Dispense twelve (12). No refill. Substitution is permissible. Follow-up: Return to the emergency department as needed. Follow up with your doctor in three days. Reason for referral: recheck today's concerns. Summary of care provided to patient via paper. Follow up with your doctor in three. Screening today revealed the patient's blood pressure to be in the normal range. The patient should follow up with a primary care provider for blood pressure management. Understanding of the discharge instructions verbalized by patient. Follow-up with: Rufino Chand MD, Urology, , [address], [place], [address] Follow up in one week. Reason for referral: recheck today's concerns. Summary of care provided to patient via paper. (Electronically signed by Marvel Dejesus Dr. 11/16/2016 3:46)
--- NOTE | 2016-11-16 03:47 | ED MAR SUMMARY ---
..... Medication Administration Record [facility] [address] [place] [address] Patient: LEOBARDO FERRER Visit ID: [id number] 46y, M Weight: 79.3 kg Height/Length: 69 in BMI: 25.8 ALLERGIES: No Known Drug Allergy Start 19:14 11/08/2016 Julianne Junior R.N. Medication Administered: IV NS (SALINE), Dose: IV Fluids over 1 hour(s), Rate: 1000 mL/hr, Dispensed: 1000 mL bag, Site: #1. Medication Ordered: IV NS : initial bolus 1000 mL (1000 mL/hr), then none - for X1 (NOW). Given 19:17 11/08/2016 Julianne Junior R.N. Medication Administered: TORADOL [IVP], Dose: 30 mg IVP over 1 minute(s), Site: #1 right forearm. Medication Ordered: Toradol IV 30 mg (NOW). Given 19:18 11/08/2016 Julianne Junior R.N. Medication Administered: MORPHINE [IVP], Dose: 4 mg IVP over 1 minute(s), Site: #1 right forearm. Medication Ordered: Morphine IV 4 mg (HIGH ALERT MEDICATION, NOW).
--- NOTE | 2016-11-16 03:47 | ED MED RECONCILIATION SUMMARY ---
Patient: LEOBARDO FERRER Medication Reconciliation Report [facility] VisitID: [id number] [address] [place] [address] 46y, M Registration Date/Time: 11/08/2016 Weight: 79.3 kg Height/Length: 69 in. BMI: 25.8 ALLERGIES: No Known Drug Allergy The patient's Home Medications are listed below: CONTINUE TAKING THE FOLLOWING MEDICATIONS: antibiotic for skin The source(s) of the original Home Medication information: patient The following Medications were given to the patient in the Emergency Department: Toradol [IVP] IVP 30 mg, administered: 11/08/2016 7:17:00 PM Morphine [IVP] IVP 4 mg, administered: 11/08/2016 7:18:00 PM IV NS IV Fluids bolus 0, then 1000 mL/hr, administered: 11/08/2016 7:14:00 PM The following Medications were prescribed to the patient: Zofran (orally disintegrating tablets) 4 mg: take 1 orally every 8 hours as needed for nausea and vomiting. Dispense ten (10). No refill. Substitution is permissible. -- Marvel Dejesus Dr. Motrin 600 mg tablets: take 1 tablet orally every 6 hours as needed for pain, stiffness or swelling. Dispense thirty (30). No refill. Substitution is permissible. -- Marvel Dejesus Dr. Percocet 5 mg/325 mg: take 1 tablet orally every 6 hours as needed for pain. Dispense twelve (12). No refill. Substitution is permissible. -- Marvel Dejesus Dr.
--- NOTE | 2016-11-16 03:47 | ED MAR SUMMARY ---
..... Medication Administration Record [facility] [address] [place] [address] Patient: LEOBARDO FERRER Visit ID: [id number] 46y, M Weight: 79.3 kg Height/Length: 69 in BMI: 25.8 ALLERGIES: No Known Drug Allergy Start 19:14 11/08/2016 Jluianne Junior R.N. Medication Administered: IV NS (SALINE), Dose: IV Fluids over 1 hour(s), Rate: 1000 mL/hr, Dispensed: 1000 mL bag, Site: #1. Medication Ordered: IV NS : initial bolus 1000 mL (1000 mL/hr), then none - for X1 (NOW). Given 19:17 11/08/2016 Julianne Junior R.N. Medication Administered: TORADOL [IVP], Dose: 30 mg IVP over 1 minute(s), Site: #1 right forearm. Medication Ordered: Toradol IV 30 mg (NOW). Given 19:18 11/08/2016 Julianne Junior R.N. Medication Administered: MORPHINE [IVP], Dose: 4 mg IVP over 1 minute(s), Site: #1 right forearm. Medication Ordered: Morphine IV 4 mg (HIGH ALERT MEDICATION, NOW).
--- NOTE | 2016-11-16 03:47 | ED MED RECONCILIATION SUMMARY ---
Patient: LEOBARDO FERRER Medication Reconciliation Report [facility] VisitID: [id number] [address] [place] [address] 46y, M Registration Date/Time: 11/08/2016 Weight: 79.3 kg Height/Length: 69 in. BMI: 25.8 ALLERGIES: No Known Drug Allergy The patient's Home Medications are listed below: CONTINUE TAKING THE FOLLOWING MEDICATIONS: antibiotic for skin The source(s) of the original Home Medication information: patient The following Medications were given to the patient in the Emergency Department: Toradol [IVP] IVP 30 mg, administered: 11/08/2016 7:17:00 PM Morphine [IVP] IVP 4 mg, administered: 11/08/2016 7:18:00 PM IV NS IV Fluids bolus 0, then 1000 mL/hr, administered: 11/08/2016 7:14:00 PM The following Medications were prescribed to the patient: Zofran (orally disintegrating tablets) 4 mg: take 1 orally every 8 hours as needed for nausea and vomiting. Dispense ten (10). No refill. Substitution is permissible. -- Marvel Dejesus Dr. Motrin 600 mg tablets: take 1 tablet orally every 6 hours as needed for pain, stiffness or swelling. Dispense thirty (30). No refill. Substitution is permissible. -- Marvel Dejesus Dr. Percocet 5 mg/325 mg: take 1 tablet orally every 6 hours as needed for pain. Dispense twelve (12). No refill. Substitution is permissible. -- Marvel Dejesus Dr.
--- NOTE | 2016-11-16 03:47 | ED DISCHARGE INSTRUCTIONS ---
Patient: LEOBARDO FERRER General Instructions [facility] VisitID: [id number] [address] [place] [address] 46y, M Registration Date/Time: 11/08/2016 11/08/2016 20:34 BP: 104/74. HR: 58. RR: 18. O2 saturation: 97%. Pain level now: 0/10. Blood pressure normal. Oxygen saturation normal. Right renal colic in the right ureter with hydronephrosis and hematuria (acute). INSTRUCTIONS Warnings: GENERAL WARNINGS: Return or contact your physician immediately if your condition worsens or changes unexpectedly, if not improving as expected, or if other problems arise. SPECIFICALLY, return if you develop pain, fever, vomiting, the inability to keep fluids down, blood in vomitus, blood in diarrhea, fainting or lightheadedness. Your Current Medications: CONTINUE TAKING THE FOLLOWING MEDICATIONS: antibiotic for skin*. Prescription Medications: Zofran (orally disintegrating tablets) 4 mg: take 1 orally every 8 hours as needed for nausea and vomiting. Dispense ten (10). No refill. Substitution is permissible. Motrin 600 mg tablets: take 1 tablet orally every 6 hours as needed for pain, stiffness or swelling. Dispense thirty (30). No refill. Substitution is permissible. Percocet 5 mg/325 mg: take 1 tablet orally every 6 hours as needed for pain. Dispense twelve (12). No refill. Substitution is permissible. Follow-up: Return to the emergency department as needed. Follow up with your doctor in three days. Reason for referral: recheck today's concerns. Summary of care provided to patient via paper. Follow up with your doctor in three. Screening today revealed the patient's blood pressure to be in the normal range. The patient should follow up with a primary care provider for blood pressure management. Understanding of the discharge instructions verbalized by patient. Follow-up with: Rufino Chand MD, Urology, , [address] [facility] [place], [address] Follow up in one week. Reason for referral: recheck today's concerns. Summary of care provided to patient via paper. ADDITIONAL INFORMATION Kidney Stone (W/ Colic) The sharp cramping pain and nausea/vomiting that you have is due to a small stone which has formed in the kidney and is now passing down a narrow tube (ureter) on its way to your bladder. Once it reaches your bladder, the pain will stop. The stone may pass in your urine stream in one piece. [The size may be 1/16" to 1/4" (1-6mm)]. Or, the stone may also break up into erma fragments which you may not even notice. Once you have had a kidney stone, you are at risk for developing another one in the future. Home Care: Drink plenty of fluids (at least 8 to 10 glasses of water a day). Most stones will pass on their own, but may take from a few hours to a few days. Sometimes the stone is too large to pass by itself and special methods will have to be used to remove the stone. Each time you urinate, do so in a jar. Pour the urine from the jar through the strainer and into the toilet. Continue doing this until 24 hours after your pain stops. By then, if there was a kidney stone, it should pass from your bladder. Some stones dissolve into sand-like particles and pass right through the strainer. In that case, you wont ever see a stone. Save any stone that you find in the strainer and bring it to your doctor for analysis. It may be possible to prevent certain types of stones from forming. Therefore, it is important to know what kind of stone you have. Try to stay as active as possible since this will help the stone pass. Do not stay in bed unless your pain prevents you from getting up. You may notice a red, pink or brown color to your urine. This is normal while passing a kidney stone. Follow Up with your doctor or return to this facility if the pain lasts more than 48 hours. Get Prompt Medical Attention if any of the following occur: Pain that is not controlled by the medicine given Repeated vomiting or unable to keep down fluids Weakness, dizziness or fainting Fever of 100.4F (38C) or higher, or as directed by your healthcare provider Passage of solid red or brown urine (can't see through it) or urine with lots of blood clots Unable to pass urine for 8 hours and increasing bladder pressure Blood In The Urine Blood in the urine ("hematuria") has many possible causes. If it occurs after an injury (such as a car accident or fall), it is most often a sign of bruising to the kidney or bladder. Common medical causes of blood in the urine include urinary tract infection, kidney stone, inflammation, tumors, or certain other diseases of the kidney or bladder. Menstruation can cause blood to appear in the urine sample, although it is not coming from the urinary tract. If only a trace amount of blood is present, it will show up on the urine test, even though the urine may be yellow and not pink or red. This may occur with any of the above conditions, as well as heavy exercise or high fever. In this case, your doctor may want to repeat the urine test on another day. This will show if the blood is still present. If so, then other tests can be done to find out the cause. Home Care: If your urine does not appear bloody (pink, brown or red) then you do not need to restrict your activity in any way. If you can see blood in your urine, rest and avoid heavy exertion until your next exam. Do not use aspirin or anti-inflammatory medicine like ibuprofen (Motrin, Advil) or naproxen (Naprosyn, Aleve). These thin the blood and may increase bleeding. Follow Up with your doctor or as advised by our staff. If you were injured and had blood in your urine, you should have a repeat urine test in 1-2 days. Contact your doctor or return to this facility for this test. [NOTE: A radiologist will review any X-rays that were taken. We will notify you of any new findings that may affect your care.] Get Prompt Medical Attention if any of the following occur: Bright red blood or blood clots in the urine (if a new symptom) Weakness, dizziness or fainting New groin, abdominal or back pain Fever of 100.4F (38C) or higher, or as directed by your healthcare provider Repeated vomiting Bleeding from nose, gums or easy bruising Ondansetron Oral disintegrating tablet What is this medicine? ONDANSETRON (on CHAGO se emilia) is used to treat nausea and vomiting caused by chemotherapy. It is also used to prevent or treat nausea and vomiting after surgery. How should I use this medicine? These tablets are made to dissolve in the mouth. Do not try to push the tablet through the foil backing. With dry hands, peel away the foil backing and gently remove the tablet. Place the tablet in the mouth and allow it to dissolve, then swallow. While you may take these tablets with water, it is not necessary to do so. Talk to your manufacturing engineering professor regarding the use of this medicine in children. Special care may be needed. What side effects may I notice from receiving this medicine? Side effects that you should report to your doctor or health career development facilitator as soon as possible: allergic reactions like skin rash, itching or hives, swelling of the face, lips, or tongue breathing problems dizziness fast or irregular heartbeat feeling faint or lightheaded, falls fever and chills swelling of the hands and feet tightness in the chest Side effects that usually do not require medical attention (report to your doctor or health career development facilitator if they continue or are bothersome): constipation or diarrhea headache What may interact with this medicine? Do not take this medicine with any of the following medications: -apomorphine -cisapride -dofetilide -dronedarone -pimozide -thioridazine -ziprasidone This medicine may also interact with the following medications: -carbamazepine -phenytoin -rifampicin -tramadol -other medicines that prolong the QT interval (cause an abnormal heart rhythm) What if I miss a dose? If you miss a dose, take it as soon as you can. If it is almost time for your next dose, take only that dose. Do not take double or extra doses. Where should I keep my medicine? Keep out of the reach of children. Store between 2 and 30 degrees C (36 and 86 degrees F). Throw away any unused medicine after the expiration date. What should I tell my health care provider before I take this medicine? They need to know if you have any of these conditions: heart disease history of irregular heartbeat liver disease low levels of magnesium or potassium in the blood an unusual or allergic reaction to ondansetron, granisetron, other medicines, foods, dyes, or preservatives or trying to get breast-feeding What should I watch for while using this medicine? Check with your doctor or health career development facilitator as soon as you can if you have any sign of an allergic reaction. Ibuprofen Oral tablet What is this medicine? IBUPROFEN (eye BYOO proe fen) is a non-steroidal anti-inflammatory drug (NSAID). It is used for dental pain, fever, headaches or migraines, osteoarthritis, rheumatoid arthritis, or painful monthly periods. It can also relieve minor aches and pains caused by a cold, flu, or sore throat. How should I use this medicine? Take this medicine by mouth with a glass of water. Follow the directions on the prescription label. Take this medicine with food if your stomach gets upset. Try to not lie down for at least 10 minutes after you take the medicine. Take your medicine at regular intervals. Do not take your medicine more often than directed. A special MedGuide will be given to you by the pharmacist with each prescription and refill. Be sure to read this information carefully each time. Talk to your manufacturing engineering professor regarding the use of this medicine in children. Special care may be needed. What side effects may I notice from receiving this medicine? Side effects that you should report to your doctor or health career development facilitator as soon as possible: allergic reactions like skin rash, itching or hives, swelling of the face, lips, or tongue black or bloody stools, blood in the urine or in vomit breathing problems changes in vision chest pain general ill feeling or flu-like symptoms nausea or vomiting redness, blistering, peeling or loosening of the skin, including inside the mouth slurred speech or weakness on one side of the body stomach pain unexplained weight gain or swelling unusually weak or tired yellowing of eyes or skin Side effects that usually do not require medical attention (report to your doctor or health career development facilitator if they continue or are bothersome): constipation or diarrhea dizziness gas or heartburn stomach upset What may interact with this medicine? Do not take this medicine with any of the following medications: cidofovir ketorolac methotrexate pemetrexed This medicine may also interact with the following medications: alcohol aspirin diuretics lithium other drugs for inflammation like prednisone warfarin What if I miss a dose? If you miss a dose, take it as soon as you can. If it is almost time for your next dose, take only that dose. Do not take double or extra doses. Where should I keep my medicine? Keep out of the reach of children. Store at room temperature between 15 and 30 degrees C (59 and 86 degrees F). Keep container tightly closed. Throw away any unused medicine after the expiration date. What should I tell my health care provider before I take this medicine? They need to know if you have any of these conditions: asthma cigarette smoker drink more than 3 alcohol containing drinks a day heart disease or circulation problems such as heart failure or leg edema (fluid retention) high blood pressure kidney disease liver disease stomach bleeding or ulcers an unusual or allergic reaction to ibuprofen, aspirin, other NSAIDS, other medicines, foods, dyes, or preservatives or trying to get breast-feeding What should I watch for while using this medicine? Tell your doctor or healthcare professional if your symptoms do not start to get better or if they get worse. This medicine does not prevent heart attack or stroke. In fact, this medicine may increase the chance of a heart attack or stroke. The chance may increase with longer use of this medicine and in people who have heart disease. If you take aspirin to prevent heart attack or stroke, talk with your doctor or health career development facilitator. Do not take other medicines that contain aspirin, ibuprofen, or naproxen with this medicine. Side effects such as stomach upset, nausea, or ulcers may be more likely to occur. Many medicines available without a prescription should not be taken with this medicine. This medicine can cause ulcers and bleeding in the stomach and intestines at any time during treatment. Ulcers and bleeding can happen without warning symptoms and can cause . To reduce your risk, do not smoke cigarettes or drink alcohol while you are taking this medicine. You may get drowsy or dizzy. Do not drive, use machinery, or do anything that needs mental alertness until you know how this medicine affects you. Do not stand or sit up quickly, especially if you are an older patient. This reduces the risk of dizzy or fainting spells. This medicine can cause you to bleed more easily. Try to avoid damage to your teeth and gums when you brush or floss your teeth. Oxycodone Hydrochloride, Acetaminophen Oral tablet What is this medicine? ACETAMINOPHEN; OXYCODONE (a set a WEST bella fen; ox i KOE done) is a pain reliever. It is used to treat mild to moderate pain. How should I use this medicine? Take this medicine by mouth with a full glass of water. Follow the directions on the prescription label. Take your medicine at regular intervals. Do not take your medicine more often than directed. Talk to your manufacturing engineering professor regarding the use of this medicine in children. Special care may be needed. Patients over 65 years old may have a stronger reaction and need a smaller dose. What side effects may I notice from receiving this medicine? Side effects that you should report to your doctor or health career development facilitator as soon as possible: allergic reactions like skin rash, itching or hives, swelling of the face, lips, or tongue breathing difficulties, wheezing confusion light headedness or fainting spells severe stomach pain yellowing of the skin or the whites of the eyes Side effects that usually do not require medical attention (report to your doctor or health career development facilitator if they continue or are bothersome): dizziness drowsiness nausea vomiting What may interact with this medicine? alcohol antihistamines barbiturates like amobarbital, butalbital, butabarbital, methohexital, pentobarbital, phenobarbital, thiopental, and secobarbital benztropine drugs for bladder problems like solifenacin, trospium, oxybutynin, tolterodine, hyoscyamine, and methscopolamine drugs for breathing problems like ipratropium and tiotropium drugs for certain stomach or intestine problems like propantheline, homatropine methylbromide, glycopyrrolate, atropine, belladonna, and dicyclomine general anesthetics like etomidate, ketamine, nitrous oxide, propofol, desflurane, enflurane, halothane, isoflurane, and sevoflurane medicines for depression, anxiety, or psychotic disturbances medicines for sleep muscle relaxants naltrexone narcotic medicines (opiates) for pain phenothiazines like perphenazine, thioridazine, chlorpromazine, mesoridazine, fluphenazine, prochlorperazine, promazine, and trifluoperazine scopolamine tramadol trihexyphenidyl What if I miss a dose? If you miss a dose, take it as soon as you can. If it is almost time for your next dose, take only that dose. Do not take double or extra doses. Where should I keep my medicine? Keep out of the reach of children. This medicine can be abused. Keep your medicine in a safe place to protect it from theft. Do not share this medicine with anyone. Selling or giving away this medicine is dangerous and against the law. Store at room temperature between 20 and 25 degrees C (68 and 77 degrees F). Keep container tightly closed. Protect from light. This medicine may cause accidental overdose and if it is taken by other adults, children, or pets. Flush any unused medicine down the toilet to reduce the chance of harm. Do not use the medicine after the expiration date. What should I tell my health care provider before I take this medicine? They need to know if you have any of these conditions: brain tumor Crohn's disease, inflammatory bowel disease, or ulcerative colitis drink more than 3 alcohol containing drinks per day drug abuse or addiction head injury heart or circulation problems kidney disease or problems going to the bathroom liver disease lung disease, asthma, or breathing problems an unusual or allergic reaction to acetaminophen, oxycodone, other opioid analgesics, other medicines, foods, dyes, or preservatives or trying to get breast-feeding What should I watch for while using this medicine? Tell your doctor or health career development facilitator if your pain does not go away, if it gets worse, or if you have new or a different type of pain. You may develop tolerance to the medicine. Tolerance means that you will need a higher dose of the medication for pain relief. Tolerance is normal and is expected if you take this medicine for a long time. Do not suddenly stop taking your medicine because you may develop a severe reaction. Your body becomes used to the medicine. This does NOT mean you are addicted. Addiction is a behavior related to getting and using a drug for a non-medical reason. If you have pain, you have a medical reason to take pain medicine. Your doctor will tell you how much medicine to take. If your doctor wants you to stop the medicine, the dose will be slowly lowered over time to avoid any side effects. You may get drowsy or dizzy. Do not drive, use machinery, or do anything that needs mental alertness until you know how this medicine affects you. Do not stand or sit up quickly, especially if you are an older patient. This reduces the risk of dizzy or fainting spells. Alcohol may interfere with the effect of this medicine. Avoid alcoholic drinks. There are different types of narcotic medicines (opiates) for pain. If you take more than one type at the same time, you may have more side effects. Give your health care provider a list of all medicines you use. Your doctor will tell you how much medicine to take. Do not take more medicine than directed. Call emergency for help if you have problems breathing. The medicine will cause constipation. Try to have a bowel movement at least every 2 to 3 days. If you do not have a bowel movement for 3 days, call your doctor or health career development facilitator. Do not take Tylenol (acetaminophen) or medicines that have acetaminophen with this medicine. Too much acetaminophen can be very dangerous. Many nonprescription medicines contain acetaminophen. Always read the labels carefully to avoid taking more acetaminophen. You have been given the following additional information: Kidney Stone W/ Colic Hematuria Ondansetron Oral disintegrating tablet Ibuprofen Oral tablet Oxycodone Hydrochloride, Acetaminophen Oral tablet (Electronically signed by Marvel Dejesus Dr. 11/16/2016 3:46)
== END 2016-11-08 20:51 | disposition home or self-care (01) ==
LOC: ED SRH 18:02
DX: N23 Unspecified renal colic (principal); N13.30 Unspecified hydronephrosis; R31.9 Hematuria, unspecified
CPT/HCPCS: 90004; 90100; 92235; 95059